=== PATIENT | male | born 1990 | race Caucasian/White ===

== ENCOUNTER 2020-06-12 12:42 | Emergency (ER) | payer OTHER ==
[2020-06-12 12:56] VITALS: RESP 18
[2020-06-12] MEDS ORDERED: HYDROmorphone 0.5 MG/0.5 ML SYRINGE IVP STA (14:13)
[2020-06-12] MEDS ORDERED: LIDOCAINE 1% INJ 10MG/ML (20 ML MDV) SQ ONE (14:13)
[2020-06-12] MEDS ORDERED: PIPERACILLIN-TAZOBACTAM 3.375 GM in SODIUM CHLORIDE 0.9% 100 ML IVPB STA (14:13)
[2020-06-12 14:44] LABS: Basophils # (A) 0.1 k/uL (0-0.2); Basophils % (A) 1 %; Eosinophils # (A) 0.3 k/uL (0-0.7); Eosinophils % (A) 2 %; HCT 50.5 % (39.0-53.0); Lymphocytes # (A) 1.4 k/uL (1.0-4.8); Lymphocytes % (A) 12 %; MCH 29.3 pg (25.0-35.0); MCHC 31.7 g/dL (31.0-37.0); MCV 92.5 fL (80.0-100.0); Monocytes # (A) 1.1 k/uL (0-1.0); Monocytes % (A) 9 %; Neutrophils # (A) 8.7 k/uL (1.3-7.7); Neutrophils % (A) 74 %; Platelet Count 161 k/uL (150-450); RBC 5.46 m/uL (4.30-5.90); RDW 12.3 % (11.5-15.5); WBC 11.7 k/uL (3.8-10.6)
[2020-06-12 14:49] LABS: ALT 25 U/L (4-49); AST 26 U/L (17-59); African American GFR (CKD) >90 (>60 ml/min/1.73 sqM); Albumin 4.8 g/dL (3.5-5.0); Alkaline Phosphatase 83 U/L (38-126); Anion Gap 10 mmol/L; Blood Urea Nitrogen 13 mg/dL (9-20); Calcium 9.7 mg/dL (8.4-10.2); Carbon Dioxide 28 mmol/L (22-30); Chloride 101 mmol/L (98-107); Glucose 92 mg/dL (74-99); Non-African American GFR(CKD) >90 (>60 ml/min/1.73 sqM); Potassium 4.5 mmol/L (3.5-5.1); Sodium 139 mmol/L (137-145); Total Bilirubin 0.7 mg/dL (0.2-1.3); Total Protein 8.5 g/dL (6.3-8.2)
--- NOTE | 2020-06-12 15:49 | CT ---
EXAMINATION TYPE: CT lower extremity LT w con DATE OF EXAM: 06/12/2020 COMPARISON: HISTORY: Left upper thigh ingrown hair. CT DLP: 629.7 mGycm Automated exposure control for dose reduction was used. CONTRAST: Performed with IV Contrast, patient injected with 100ml mL of Isovue 300. Images were obtained from the mid ileum to the distal femur without contrast. Femur is intact. There is no fracture nor dislocation. There is no evidence of focal bone destruction . There is subcutaneous edema in the medial aspect of the left upper thigh. There is no drainable fluid collection. There is no evidence of abscess. The muscle structures appear intact. Visualized soft ti ssues of the left pelvis appear intact. IMPRESSION: Subcutaneous edema. No abscess seen.
[2020-06-12 16:15] VITALS: BP 129/77; PULSE 80; TEMP 98.4
--- NOTE | 2020-06-12 16:37 | ED ---
Skin/Abscess/FB HPI - General Chief complaint: Skin/Abscess/Foreign Body Stated complaint: ingrown hair on thigh Time Seen by Provider: 06/12/20 13:52 Source: patient Mode of arrival: ambulatory Limitations: no limitations - History of Present Illness Initial comments: Nontoxic-appearing 30-year-old male who does not endorse any past medical history presenting today for chief complaint of left upper thigh abscess. Patient states initially thought he had an ingrown hair he states his blood the size with him he states is increased inside and there is surrounding redness. Patient denies any known fevers. He denies chills or general malaise. Patient states area is very tender and warm. He denies any redness or pain between the scrotum and the anus. Denies DM hx. Patietn denies abdominal pain, rectal discharge/bleeding. Denies additional complaints. Appears nontoxic on arrival but is febrile. Denies URI symptoms. - Related Data Previous Rx's Medication Instructions Recorded Cephalexin [Keflex] 500 mg PO Q6HR 7 Days #28 cap 06/12/20 Sulfamethox-Tmp 800-160Mg [Bactrim 1 tab PO Q12HR 7 Days #14 tab 06/12/20 DS 800-160 mg] Allergies Allergy/AdvReac Type Severity Reaction Status Date / Time No Known Allergies Allergy Verified 06/12/20 12:56 Review of Systems ROS Statement: Those systems with pertinent positive or pertinent negative responses have been documented in the HPI. ROS Other: All systems not noted in ROS Statement are negative. Past Medical History Past Medical History: No Reported History History of Any Multi-Drug Resistant Organisms: None Reported Past Surgical History: Cholecystectomy, Orthopedic Surgery Past Psychological History: No Psychological Hx Reported Smoking Status: Current every day smoker Past Alcohol Use History: Occasional Past Drug Use History: None Reported General Exam - General Exam Comments Initial Comments: General: The patient is awake and alert, in no distress, and does not appear acutely ill. Eye: Pupils are equal, round and reactive to light, extra-ocular movements are intact. No nystagmus. There is normal conjunctiva bilaterally. No signs of icterus. Ears, nose, mouth and throat: There are moist mucous membranes and no oral lesions. Neck: The neck is supple, there is no tenderness or JVD. Cardiovascular: There is a regular rate and rhythm. No murmur, rub or gallop is appreciated. Respiratory: Lungs are clear to auscultation, respirations are non-labored, breath sounds are equal. No wheezes, stridor, rales, or rhonchi. Gastrointestinal: Soft, non-distended, non-tender abdomen without masses or or ganomegaly noted. There is no rebound or guarding present. : no testicular swelling, no redness, no perineum redness, involvement Musculoskeletal: Normal ROM, no tenderness. Strength 5/5. Sensation intact. Pulses equal bilaterally 2+. Neurological: A&O x 3. CN II-XII intact, There are no obvious motor or sensory deficits. Coordination appears grossly intact. Speech is normal. Skin: Skin is warm and dry. Raised fluctuant area of the left upper mid thigh there is black dot in center, surrounding redness, no crepitus Psychiatric: Cooperative, appropriate mood & affect, normal judgment. Limitations: no limitations Course Vital Signs 06/12/20 06/12/20 12:53 16:05 Temperature 101.0 F H 98.4 F Pulse Rate 83 80 Respiratory 18 18 Rate Blood Pressure 139/89 129/77 O2 Sat by Pulse 99 99 Oximetry Procedures - Incision & Drainage Consent Obtained: verbal consent, written consent Indication: abscess Site: lower extremity (left thigh) Anesthetic Used: lidocaine 1% Amount (mLs): 2 I&D Cleaning Method: Iodine Sterile Field Used?: No Scalpel Used: #11 Needle Aspiration Performed?: Yes Irrigation Performed?: No I&D Drainage Obtained: Pus, Blood Culture Obtained?: No Patient Tolerated Procedure: well Medical Decision Making - Medical Decision Making Mild leukocytosis, fever. Patient overall does not appear toxic. Spontaneously began draining in ER prior to I&D. I&D performed at 1626 (timeout). Patient tolerated procedure well minimal amount of purulent discharge. Patient case discussed with Dr. Jang as well as labs--he is agreeable to discharge with oral antibiotics/return parameters. Patient agreeable discharged appearing well. - Lab Data Result diagrams: 06/12/20 14:23 06/12/20 14:23 Lab Results 06/12/20 06/12/20 06/12/20 Range/Units 14:23 14:23 14:23 WBC 11.7 H (3.8-10.6) k/uL RBC 5.46 (4.30-5.90) m/uL Hgb 16.0 (13.0-17.5) gm/dL Hct 50.5 (39.0-53.0) % MCV 92.5 (80.0-100.0) fL MCH 29.3 (25.0-35.0) pg MCHC 31.7 (31.0-37.0) g/dL RDW 12.3 (11.5-15.5) % Plt Count 161 (150-450) k/uL Neutrophils % 74 % Lymphocytes % 12 % Monocytes % 9 % Eosinophils % 2 % Basophils % 1 % Neutrophils # 8.7 H (1.3-7.7) k/uL Lymphocytes # 1.4 (1.0-4.8) k/uL Monocytes # 1.1 H (0-1.0) k/uL Eosinophils # 0.3 (0-0.7) k/uL Basophils # 0.1 (0-0.2) k/uL Sodium 139 (137-145) mmol/L Potassium 4.5 (3.5-5.1) mmol/L Chloride 101 (98-107) mmol/L Carbon Dioxide 28 (22-30) mmol/L Anion Gap 10 mmol/L BUN 13 (9-20) mg/dL Creatinine 0.92 (0.66-1.25) mg/dL Est GFR (CKD-EPI)AfAm >90 (>60 ml/min/1.73 sqM) Est GFR (CKD-EPI)NonAf >90 (>60 ml/min/1.73 sqM) Glucose 92 (74-99) mg/dL Plasma Lactic Acid Sandeep 1.2 (0.7-2.0) mmol/L Calcium 9.7 (8.4-10.2) mg/dL Total Bilirubin 0.7 (0.2-1.3) mg/dL AST 26 (17-59) U/L ALT 25 (4-49) U/L Alkaline Phosphatase 83 (38-126) U/L Total Protein 8.5 H (6.3-8.2) g/dL Albumin 4.8 (3.5-5.0) g/dL Disposition Clinical Impression: Abscess, Cellulitis Disposition: HOME SELF-CARE Condition: Good Instructions (If sedation given, give patient instructions): Abscess Incision and Drainage (ED), Abscess Incision and Drainage (DC) Additional Instructions: Please use medication as discussed. Please follow-up with family doctor in the next 2 days, If worsening immediate return to the Er. Please return to emergency room if the symptoms increase or worsen or for any other concerns. Prescriptions: Sulfamethox-Tmp 800-160Mg [Bactrim DS 800-160 mg] 1 tab PO Q12HR 7 Days #14 tab Cephalexin [Keflex] 500 mg PO Q6HR 7 Days #28 cap Is patient prescribed a controlled substance at d/c from ED?: No Referrals: None,Stated [Primary Care Provider] - 1-2 days [facility] [NON-STAFF] - 1-2 days Time of Disposition: 16:36
== END 2020-06-12 16:48 | disposition home or self-care (01) ==
LOC: EC 12:42
DX: L03.116 Cellulitis of left lower limb (principal); L02.416 Cutaneous abscess of left lower limb; F17.200 Nicotine dependence, unspecified, uncomplicated
CPT/HCPCS: 36415; 80053; 83605; 85025; 87040; 73701; 99284; 10060; 96365; 96366; 96375; J2543; J2001; J1170; Q9967

== ENCOUNTER 2020-11-08 11:49 | Emergency (ER) | payer OTHER ==
--- NOTE | 2020-11-08 12:33 | ED ---
Upper Extremity HPI - General Stated Complaint: lt shoulder pain Time Seen by Provider: 11/08/20 12:30 Source: patient, RN notes reviewed Mode of arrival: ambulatory Limitations: no limitations - History of Present Illness Initial Comments: This a 30-year-old male presents emergency from chief complaint left shoulder pain. Patient states that he had prior rotator cuff surgery in [place] is 18 left shoulder. 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 Patient states he is [id number]. Patient states she has resting pain and pain with movement. No paresthesias. - Related Data Previous Rx's Medication Instructions Recorded Cephalexin [Keflex] 500 mg PO Q6HR 7 Days #28 cap 06/12/20 Sulfamethox-Tmp 800-160Mg [Bactrim 1 tab PO Q12HR 7 Days #14 tab 06/12/20 DS 800-160 mg] Allergies Allergy/AdvReac Type Severity Reaction Status Date / Time No Known Allergies Allergy Verified 11/08/20 12:32 Review of Systems ROS Statement: Those systems with pertinent positive or pertinent negative responses have been documented in the HPI. ROS Other: All systems not noted in ROS Statement are negative. Past Medical History Past Medical History: No Reported History History of Any Multi-Drug Resistant Organisms: None Reported Past Surgical History: Cholecystectomy, Orthopedic Surgery Past Psychological History: No Psychological Hx Reported Smoking Status: Current every day smoker Past Alcohol Use History: Occasional Past Drug Use History: None Reported General Exam General appearance: alert, in no apparent distress Disposition Referrals: None,Stated [Primary Care Provider] - 1-2 days
[2020-11-08 12:34] VITALS: BP 137/88; PULSE 69; RESP 18; TEMP 98.2
--- NOTE | 2020-11-08 12:53 | XR ---
EXAMINATION TYPE: XR shoulder complete LT DATE OF EXAM: 11/08/2020 COMPARISON: NONE HISTORY: Pain TECHNIQUE: Three views are submitted. FINDINGS: The osseous structures are intact. There is no acute fracture or dislocation. Mild hypertrophic mccallum ge of the AC joint. IMPRESSION: 1. No acute process.
== END 2020-11-08 13:22 ==
LOC: EC 11:49
DX: M25.512 Pain in left shoulder (principal); F17.200 Nicotine dependence, unspecified, uncomplicated
CPT/HCPCS: 99283

== ENCOUNTER 2020-12-02 17:42 | Emergency (ER) | payer OTHER ==
[2020-12-02 18:01] VITALS: BP 146/85; PULSE 77; RESP 16; TEMP 98.4
[2020-12-02] MEDS ORDERED: DIPH,PERTUS(ACELL)TETVAC-LF 0.5 ML VIAL IM ONE (18:48)
--- NOTE | 2020-12-02 19:27 | XR ---
PROCEDURE: XR hand complete RT - 3V DATE AND TIME: 12/02/2020 6:49 PM CLINICAL INDICATION: PHH; drill injury, pain TECHNIQUE: Department protocol COMPARISON: None FINDINGS: There is no fracture or malalignment. There is soft tissue swelling to the palmar soft tiss ues, without definite metallic radiopaque foreign body by radiographic criteria. IMPRESSION: Soft tissue swelling.
--- NOTE | 2020-12-02 19:56 | ED ---
Wound/Laceration HPI - General Chief Complaint: Wound/Laceration Stated Complaint: Hand lac Time Seen by Provider: 12/02/20 18:38 Source: patient Mode of arrival: ambulatory Limitations: no limitations - History of Present Illness Initial Comments: Male presenting to the ER today for chief complaint of right hand laceration. Pt was using drill bit to push against something (not pushing button), it slipped and the bit went into hand (thenar eminence). pt denies EtOH range of motion of the thumb numbness tingling P patient amidst of swelling and pain. Unsure of last tetanus. Patient denies any other areas of injury. Remaining review of system negative - Related Data Previous Rx's Medication Instructions Recorded Cephalexin [Keflex] 500 mg PO Q6HR 7 Days #28 cap 06/12/20 Sulfamethox-Tmp 800-160Mg [Bactrim 1 tab PO Q12HR 7 Days #14 tab 06/12/20 DS 800-160 mg] Ibuprofen [Motrin] 600 mg PO Q6HR PRN #20 tab 11/08/20 Allergies Allergy/AdvReac Type Severity Reaction Status Date / Time No Known Allergies Allergy Verified 12/02/20 17:59 Review of Systems ROS Statement: Those systems with pertinent positive or pertinent negative responses have been documented in the HPI. ROS Other: All systems not noted in ROS Statement are negative. Past Medical History Past Medical History: No Reported History History of Any Multi-Drug Resistant Organisms: None Reported Past Surgical History: Cholecystectomy, Orthopedic Surgery Additional Past Surgical History / Comment(s): R hand Past Psychological History: No Psychological Hx Reported Smoking Status: Current every day smoker Past Alcohol Use History: Occasional Past Drug Use History: None Reported General Exam - General Exam Comments Initial Comments: General: The patient is awake and alert, in no distress, and does not appear acutely ill. Eye: Pupils are equal, round and reactive to light, extra-ocular movements are intact. No nystagmus. There is normal conjunctiva bilaterally. No signs of icterus. Musculoskeletal: Normal ROM, no tenderness. Strength 5/5 of the thumb/digits of right hand at all joints. Sensation intact. Pulses equal bilaterally 2+. Neurological: A&O x 3. CN II-XII intact, There are no obvious motor or sensory deficits. Coordination appears grossly intact. Speech is normal. Skin: Skin is warm and dry and no rashes. triangle skin flap, adipose exposed. Psychiatric: Cooperative, appropriate mood & affect, normal judgment. Limitations: no limitations Course Vital Signs 12/02/20 17:59 Temperature 98.4 F Pulse Rate 77 Respiratory 16 Rate Blood Pressure 146/85 O2 Sat by Pulse 99 Oximetry Procedures - Laceration Laceration #1 Consent Obtained: verbal consent Indication: laceration Site: hand Size (cm): 1 Description: irregular, clean Depth: simple, single layer Pre-repair: wound explored, irrigated extensively, deep structures intact Type of Sutures: nylon Size of Sutures: 5-0 Number of Sutures: 2 Technique: simple, interrupted Patient Tolerated Procedure: well, no complications Medical Decision Making - Medical Decision Making XR (-). irrigated extensively. placed 2 loose sutures to take down skin flap. return/care/signs of infection discussed pt tdap updated and he was discharged appearing well. Disposition Clinical Impression: Skin avulsion Disposition: HOME SELF-CARE Condition: Good Instructions (If sedation given, give patient instructions): Skin Avulsion (ED) Additional Instructions: Please use medication as discussed. Please follow-up with family doctor in the next 2 days. Return for suture removal in 7-10 days. Keep area clean and change bandage daily--monitoring for signs of infection. Please return to emergency room if the symptoms increase or worsen or for any other concerns. Is patient prescribed a controlled substance at d/c from ED?: No Referrals: None,Stated [Primary Care Provider] - 1-2 days Time of Disposition: 19:56
== END 2020-12-02 20:11 | disposition home or self-care (01) ==
LOC: EC 17:42
DX: S61.411A Laceration without foreign body of right hand, initial encounter (principal); Z90.49 Acquired absence of other specified parts of digestive tract; F17.200 Nicotine dependence, unspecified, uncomplicated; W27.8XXA Contact with other nonpowered hand tool, initial encounter; Z23 Encounter for immunization
CPT/HCPCS: 12001; 90715; 99282